=== PATIENT | female | born 1970 | race Caucasian/White ===

== ENCOUNTER → 2016-10-04 | Outpatient (CLI) | payer OTHER ==
[2016-04-03 12:35] VITALS: BP 112/62
[2016-10-04 14:07] LABS: ALBUMIN 3.7 g/dL (3.4-5.0); CREATININE 0.7 mg/dL (0.6-1.0); GFR 90.9; TOTAL BILIRUBIN 0.5 mg/dL (0.2-1.0); TOTAL PROTEIN 7.4 g/dL (6.4-8.2)
[2016-10-04 14:48] LABS: FREE T4 1.35 ng/dL (0.76-1.46)
[2016-10-05 05:17] LABS: ESTRADIOL LEVEL 175.1 pg/mL (.); FSH 4.9 mIU/mL (.); LUTEINIZING HORMONE 13.6 mIU/mL (.); PROGESTERONE 0.2 ng/mL (.)
[2016-10-08 09:23] LABS: % FREE TESTOSTERONE 0.94 % (0.50-2.80); TESTOSTERONE FREE 0.54 ng/dL (0.10-0.85); TESTOSTERONE TOTAL 57 ng/dL (8-48)
== END | disposition home or self-care (01) ==
LOC: LAB 13:19
PROVIDERS: ATTEND Nurse Practitioner Women's Health
DX: Z13.1 Encounter for screening for diabetes mellitus (principal); R61 Generalized hyperhidrosis; N92.6 Irregular menstruation, unspecified; Z13.220 Encounter for screening for lipoid disorders; R68.82 Decreased libido
CPT/HCPCS: 36415; 80053; 82670; 83001; 83002; 84144; 84402; 84403; 84439; 84443

== ENCOUNTER → 2016-10-08 | Outpatient (CLI) | payer OTHER ==
[2016-04-03 12:35] VITALS: BP 112/62
== END | disposition home or self-care (01) ==
LOC: SPEC 11:56
PROVIDERS: ATTEND Nurse Practitioner Women's Health
DX: Z01.419 Encounter for gynecological examination (general) (routine) without abnormal findings (principal)
CPT/HCPCS: 88175

== ENCOUNTER → 2016-10-11 | Outpatient (CLI) | payer OTHER ==
[2016-04-03 12:35] VITALS: BP 112/62
--- NOTE | 2016-10-12 10:14 | RAD ---
DATE: 10/11/2016 EXAM: DIGITAL SCREEN BILAT W/CAD HISTORY: Routine screening COMPARISON: Baseline study This study was interpreted with the benefit of Computerized Aided Detection (CAD). FINDINGS: There are scattered fibroglandular densities in the breasts. No mass is identified. No suspicious microcalcifications are seen. IMPRESSION: There is no mammographic evidence of malignancy in either breast. BI-RADS CATEGORY: 1 NEGATIVE RECOMMENDED FOLLOW-UP: 12M 12 MONTH FOLLOW-UP PQRS compliance statement: Patient information was entered into a reminder system with a target due date for the next mammogram. Mammography is a sensitive method for finding small breast cancers, but it does not detect them all and is not a substitute for careful clinical examination. A negative mammogram does not negate a clinically suspicious finding and should not result in delay in biopsying a clinically suspicious abnormality. "Our facility is accredited by the [employer] Mammography Program."
== END | disposition home or self-care (01) ==
LOC: MAMMO 13:42
PROVIDERS: ATTEND Nurse Practitioner Women's Health
DX: Z12.31 Encounter for screening mammogram for malignant neoplasm of breast (principal)
CPT/HCPCS: G0202; 77067

== ENCOUNTER → 2016-10-15 | Outpatient (CLI) | payer OTHER ==
[2016-04-03 12:35] VITALS: BP 112/62
--- NOTE | 2016-10-15 15:38 | RAD ---
Exam performed: Pelvic Ultrasound. Indication: Dysmenorrhea, irregular periods Date of Service: 10/15/16. No priors Technique: Transabdominal and transvaginal Findings: The uterus is anteverted and measures 7.3 x 4.5 x 3.0 cm. The endometrial stripe 10.0 mm Both ovaries are normal. The right ovary measures 4.3 x 3.6 x 2.2 cm , the left ovary measures 3.2 x 1.1 x 1.3 cm. There is a 2.2 x 2.5 x 1.5 cm hemorrhagic cyst in the right ovary. Small amount of free fluid seen in the posterior cul-de-sac Impression: 1. Small hemorrhagic cyst in the right ovary, otherwise unremarkable study
== END | disposition home or self-care (01) ==
LOC: US 11:20
PROVIDERS: ATTEND Nurse Practitioner Women's Health
DX: N94.6 Dysmenorrhea, unspecified (principal)
CPT/HCPCS: 76830; 76856

== ENCOUNTER 2016-11-22 21:18 | Emergency (ER) | payer OTHER ==
[~2016-11-22] VITALS: Ht 154.9 cm; Wt 54.4 kg
[2016-11-22 21:19] VITALS: BP 149/91
[2016-11-22] MEDS ORDERED: HYDROMORPHONE 2 MG/ML VIAL. IM ONE (21:45)
[2016-11-22 22:13] LABS: BILIRUBIN,URINE SMALL (NEG); GLUCOSE,URINE NEGATIVE (NEG); NITRITE,URINE NEGATIVE (NEG); PROTEIN,URINE NEGATIVE (NEG-TRACE)
--- NOTE | 2016-11-22 22:15 | PHYS DOC ---
Past Medical History Past Medical History: No Pertinent History Past Surgical History: Other Additional Past Surgical Histo: Left rotator cuff Alcohol Use: None Drug Use: None Adult General Chief Complaint Chief Complaint: ABDOMINAL PAIN HPI HPI 45-year-old female presenting to the emergency department with abdominal pain in the suprapubic region that is moderate to severe, it started after having her IUD in place on Friday. She reports vaginal bleeding present. The pain is nonradiating. Review of systems is negative for chest pain shortness of breath fevers chills nausea vomiting. All other review of systems is negative unless otherwise noted in history of present illness. Review of Systems Review of Systems SEE ABOVE. Current Medications Current Medications Current Medications Medications (Trade) Dose Ordered Sig/Neeraj Start Time Stop Time Status Last Admin Dose Admin Hydromorphone HCl (Dilaudid) 0.5 mg 1X ONCE 11/22/16 21:45 11/22/16 21:46 DC 11/22/16 22:36 0.5 MG Allergies Allergies Allergies Coded Allergies Type Severity Reaction Last Updated Verified fentanyl Allergy Intermediate 06/06/16 Yes Physical Exam Physical Exam Constitutional: Well developed, well nourished, no acute distress, non-toxic appearance. HENT: Normocephalic, atraumatic, bilateral external ears normal, oropharynx moist, no oral exudates, nose normal. [] Eyes: PERRLA, EOMI, conjunctiva normal, no discharge. Neck: Normal range of motion, no tenderness, supple, no stridor. [] Cardiovascular:Heart rate regular rhythm, no murmur Lungs & Thorax: Bilateral breath sounds clear to auscultation [] Abdomen: Soft mildly tender in the suprapubic region without rebound tenderness or guarding. Negative McBurney's point. Negative Fleming sign. No ecchymosis present. Vaginal exam performed in the presence of female nurse shows the IUD is in place with strings present at the external os of the cervix. Skin: Warm, dry, no erythema, no rash. Back: No tenderness, no CVA tenderness. [] Extremities: No tenderness, no cyanosis, no clubbing, ROM intact, no edema. [] Neurologic: Alert and oriented X 3, normal motor function, normal sensory function, no focal deficits noted. Psychologic: Affect normal, judgement normal, mood normal. [] Current Patient Data Vital Signs Vital Signs Date Time Temp Pulse Resp B/P Pulse Ox O2 Delivery O2 Flow Rate FiO2 11/22/16 22:36 18 98 Room Air 11/22/16 21:19 97.9 98 149/91 97.9 Lab Values Laboratory Tests Test 11/22/16 21:10 11/22/16 22:00 POC Urine HCG, Qualitative Hcg negative (Negative) Urine Collection Type Unknown Urine Color Dk yellow Urine Clarity Clear Urine pH 6.0 Urine Specific [place] >=1.030 Urine Protein Negativemg/dL (NEG-TRACE) Urine Glucose (UA) Negativemg/dL (NEG) Urine Ketones (Stick) Tracemg/dL (NEG) Urine Blood Large (NEG) Urine Nitrite Negative (NEG) Urine Bilirubin Small (NEG) Urine Urobilinogen Dipstick 1.0mg/dL (0.2 mg/dL) Urine Leukocyte Esterase Trace (NEG) Urine RBC Occ/HPF (0-2) Urine WBC Occ/HPF (0-4) Urine Squamous Epithelial Cells Many/LPF Urine Bacteria Few/HPF (0-FEW) Urine Mucus Marked/LPF EKG EKG [] Radiology/Procedures Radiology/Procedures [] Course & Med Decision Making Course & Med Decision Making Pertinent Labs and Imaging studies reviewed. (See chart for details) [] 46-year-old female presenting the emergency department with pain in her abdomen after having an IUD placed. Vital signs unremarkable. Pertinent physical exam findings showed IUD in place on vaginal exam. X-ray obtained which showed IUD in good positioning. Otherwise blood work obtained which was unremarkable. Her pain was treated in the emergency department with intramuscular hydromorphone. She was subsequent discharged home to follow up with our gynecology team over the next 1-2 days for further evaluation workup and care. [id number] discharge instructions and return precautions given. Patient comfortable with plan. Dragon Disclaimer Dragon Disclaimer This electronic medical record was generated, in whole or in part, using a voice recognition dictation system. Departure Departure Impression: Primary Impression: Suprapubic abdominal pain Additional Impression: Encounter for intrauterine device placement Disposition: HOME, SELF-CARE Condition: STABLE Referrals: JARVIS ANDERSON (PCP) Patient Instructions: Abdominal Pain Additional Instructions: Thank you for allowing us to participate in your care today. Followup with gynocology in 2-3 days. If you do not have a primary care provider you can ask for a list of our primary care providers. Return to the emergency department you have any new or concerning findings. This should be evaluated by the primary care physician and any necessary consulting services for continued management within a few days after discharge. Return to emergency room if you have any new or concerning symptoms including but not limited to fever, chills, nausea, vomiting, intractable pain, any new rashes, chest pain, shortness of air, uncontrolled bleeding, difficulty breathing, and/or vision loss. You may have been prescribed medication that can change in your level of thinking and ability to operate machinery. These medications include hydrocodone and Ativan. Also, Benadryl has been known to do this as well. Be sure to check with your pharmacist and ask if the medications you've prescribed can affect your level of consciousness. I recommend not operating heavy machinery or driving while on medication such as these. Scripts Morphine Sulfate 15 Mg Tablet1 Tab PO PRN Q6-8HRS PRN SEVERE PAIN #8 TAB Prov:ESTELLE THORNTON MD 11/22/16 Problem Qualifiers ESTELLE THORNTON MD Nov 22, 2016 22:15
[2016-11-22 22:20] LABS: RBC,URINE OCC /HPF (0-2); WBC,URINE OCC /HPF (0-4)
[2016-11-22 22:21] LABS: BACTERIA,URINE FEW /HPF (0-FEW); SQUAMOUS EPITHELIAL CELL,UR MANY /LPF
[2016-11-22 22:44] LABS: BASO # 0.2 x10^3/uL (0.0-0.2); BASO % 2 % (0-3); EOS % 1 % (0-3); HEMATOCRIT 41.4 % (36.0-47.0); HEMOGLOBIN 13.8 g/dL (12.0-15.5); LYMPH # 4.1 x10^3/uL (1.0-4.8); LYMPH % 42 % (24-48); MEAN CORPUSCULAR HEMOGLOBIN 30 pg (25-35); MEAN CORPUSCULAR HGB CONC 33 g/dL (31-37); MEAN CORPUSCULAR VOLUME 90 fL (79-100); MONO % 6 % (0-9); NEUT % 49 % (31-73); PLATELET COUNT 453 x10^3/uL (140-400); RED CELL DISTRIBUTION WIDTH 13.6 % (11.5-14.5); WHITE BLOOD COUNT 9.7 x10^3/uL (4.0-11.0)
[2016-11-22] MEDS ORDERED: MORP15TA PO (22:46)
[2016-11-22 22:54] LABS: CALCIUM 8.5 mg/dL (8.5-10.1); CREATININE 0.7 mg/dL (0.6-1.0); GFR 90.9; POTASSIUM 3.6 mmol/L (3.5-5.1)
[2016-11-22 23:00] LABS: ALBUMIN 3.3 g/dL (3.4-5.0); ALBUMIN/GLOBULIN RATIO 0.9 (1.0-1.7); TOTAL BILIRUBIN 0.3 mg/dL (0.2-1.0); TOTAL PROTEIN 6.9 g/dL (6.4-8.2)
--- NOTE | 2016-11-23 08:40 | RAD ---
Two-view abdominal series and PA view chest x-ray Clinical indications: Suprapubic abdominal pain after IUD placement Findings: No obstructive bowel pattern is seen. Small air-fluid levels are seen. No free and peritoneal air is evident. Mild dextroscoliosis is seen. Multiple vascular calcifications are seen within both sides of the anatomic pelvis. An IUD is seen within the central aspect of the anatomic pelvis just to the left of midline. Chest x-ray demonstrates no acute radiographic abnormality. The heart size and pulmonary vasculature and mediastinum and both jose ramon are unremarkable. IMPRESSION: Small air-fluid levels may be secondary to enterocolitis or functional ileus. IUD in place.
== END 2016-11-22 23:15 | disposition home or self-care (01) ==
LOC: ER 21:18
DX: Z30.431 Encounter for routine checking of intrauterine contraceptive device (principal); N93.9 Abnormal uterine and vaginal bleeding, unspecified; R10.30 Lower abdominal pain, unspecified; Z97.5 Presence of (intrauterine) contraceptive device; Z88.5 Allergy status to narcotic agent
CPT/HCPCS: 36415; 74022; 80053; 81001; 81025; 83690; 85027; 87086; 96372; 99285; J1170